=== PATIENT | male | born 1955 | race Caucasian/White ===

== ENCOUNTER 2020-11-03 15:07 | Outpatient (CLI) | payer MEDICARE, SELFPAY ==
--- NOTE | 2020-11-03 15:14 | MR_ITS ---
WS: [id number] MRI LUMBAR SPINE NONCONTRAST HISTORY: LOW BACK PAIN COMPARISON: None available. TECHNIQUE: Sagittal and axial multisequence imaging is submitted. Straightening of the normal cervical lordosis and thoracic kyphosis. Disc and osteophyte at C5-6 encr oaches upon the ventral thecal sac with mild deformity of the cervical cord. T6 hemangioma. 5 nonrib-bearing vertebral bodies. The S1 vertebral body is partially lumbarized. Prior interbody fix ation and posterior fusion at L5-S1. T12: 30% compression fracture. No retropulsion of the vertebral body. Increased signal is intermediat e within the vertebral body and extending into the posterior elements slightly greater on the RIGHT. Mild straightening of the normal lumbar lordosis. Mild disc desiccation without significant loss of height within the lumbar spine. Conus terminates normally at L2. T11-12: Mild annular disc bulging and osteophytic ridging. Mild encroachment into the foramina and campos barticular recesses. No high-grade stenosis. Mild facet arthritis. L1-L2: Normal. L2-L3: Mild ligamentum flavum hypertrophy and facet arthritis. There is a very shallow central disc p rotrusion without displacement of the thecal sac. L3-L4: Mild annular disc bulging and osteophytic ridging. Ligamentum flavum hypertrophy and facet art hritis. Fluid in the facet joints, LEFT greater than RIGHT. No stenosis. L4-L5: Very slight annular disc bulging. Posterior laminectomy defects are noted. Deformity and narro wing of the thecal sac with nerve roots being clumped in the periphery. Facet joint arthritis encroac hes centrally abutting several of the nerve roots in the thecal sac. Mild to moderate narrowing of th e central canal with mild narrowing of the lateral recesses and subarticular recesses. L5-S1: Thecal sac becomes patulous with laminectomy defects posteriorly. No stenosis. MR/MR lumbar spine wo con* [id number] IMPRESSION: 1. Subacute 30% compression fracture at T12. No retropulsion of the vertebral body. Very mild narrowing of the foramina and subarticular recesses at T11-12. 2. Status post L5-S1 lumbar fusion with interbody spacer. S1 is lumbarized. 3. Mild to moderate narrowing of the central canal at L4-5 with mild narrowing of the lateral recesses and subarticular recesses. Predominantly due to facet disease. 4. Large laminectomy defects at the L4-S1 levels.
== END 2020-11-03 15:08 | disposition home or self-care (01) ==
LOC: RADSHAW 15:13
PROVIDERS: Family Provider Family Medicine; PCP Family Medicine; Visit Provider Family Medicine
DX: M54.5 Low back pain (principal); S22.089A Unspecified fracture of T11-T12 vertebra, initial encounter for closed fracture; M43.27 Fusion of spine, lumbosacral region; M96.1 Postlaminectomy syndrome, not elsewhere classified; X58.XXXA Exposure to other specified factors, initial encounter
CPT/HCPCS: 72148

== ENCOUNTER → 2022-08-16 16:06 | Outpatient (BNVA) | payer MEDICARE, SELFPAY | PROVIDERS: Family Provider Family Medicine; PCP Family Medicine; Referring Provider Family Medicine; Visit Provider Dermatology | DX: L82.1 Other seborrheic keratosis (principal); L57.8 Other skin changes due to chronic exposure to nonionizing radiation; L21.8 Other seborrheic dermatitis | CPT/HCPCS: 99203 ==

== ENCOUNTER 2022-12-27 16:49 | Outpatient (CLI) | payer MEDICARE, SELFPAY ==
--- NOTE | 2022-12-27 | XR_ITS ---
WS: [id number] Exam: XR foot LT min 3V* [id number] Date/Time of Exam: 12/27/2022 5:12 PM Reason For Exam: LEFT FOOT PAIN No fracture or dislocation. Joint structures are well-maintained. No soft tissue foreign bodies are s een. Large plantar heel spur. IMPRESSION: 1. No acute fracture or other significant finding.
== END 2022-12-27 16:50 | disposition home or self-care (01) ==
PROVIDERS: PCP Family Medicine; Visit Provider Family Medicine
DX: M79.672 Pain in left foot (principal)
CPT/HCPCS: 73630

== ENCOUNTER 2023-05-31 08:37 | Outpatient (CLI) | payer MEDICARE, SELFPAY ==
--- NOTE | 2023-05-31 | ECG_ITS ---
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 Interpretive Statements NAME OF STUDY: LEXISCAN SESTAMIBI STRESS TEST INDICATION: [Chest Pain; Shortness of Breath] Procedure: At the baseline, the blood pressure was 151/85 mmHg with a heart rate of 62 bpm. The electrocardiogram showed normal sinus rhythm, normal axis with normal ST and T's. The Lexiscan was infused over a period of 20 seconds. A total of 0.4 mg of Lexiscan was infused. The stress phase was continued for a total of 5 minutes. Heart rate was at the end of stress phase was 79 bpm and a blood pressure of 137/75 mmHg. The EKG at the peak infusion revealed normal sinus rhythm with no significant ST-T wave changes. Sestamibi was injected 20 seconds after the Lexiscan infusion. Blood pressure at the end of recovery phase was 146/74 mmHg with a heart rate of 77 bpm. Conclusion: 1. Normal EKG response to Lexiscan infusion 2. No Lexiscan induced chest pain or cardiac arrhythmia. 3. Normal blood pressure and heart rate response. 4. Sestamibi/sestamibi perfusion scan pending; see separate report. Electronically Signed On 06-04-2023 12:11:26 [employer] by Jerry Max M.D. [email or web address]
[2023-05-31 08:47] VITALS: BMI 33.0
--- NOTE | 2023-05-31 09:04 | NMCV_ITS ---
Tom Holman Age: 68 Gender: M : 1955 Exam Date: 05/31/2023 09:39 Ordering Phys: Mavis Mcwilliams MD Technologist: PERNELL George Exam Location: [facility] Indications: CHEST PAIN STRESS TEST Please [facility] IMAGE PROTOCOL Rest/Stress 1 Lexiscan Day Radiopharmaceutical Dose (mCi) Administration Site Administered by Rest: Tc-99m 10.6 IV PERNELL Chacon Sestamibi Stress:Tc-99m 32.9 IV PERNELL Chacon Sestamibi Rest: 31-May-2023 60 Discovery 630 Stress: 31-May-2023 30 Discovery 630 0.4mg Lexiscan. Images obtained in supine and prone position. SPECT RESULTS Technical Quality: Excellent Raw Data Analysis: Normal Image Corrections: No attenuation or motion correction applied Summed Stress Score: 0 Summed Rest Score: 0 Summed Difference Score: 0 PERFUSION FINDINGS SPECT images demonstrate homogeneous tracer distribution throughout the myocardium. FUNCTIONAL RESULTS (calculated via Gated SPECT) Stress Image LV EF (%): 70 Stress EDV (mL):88 TID: 0.89 Stress ESV (mL):26 FUNCTIONAL FINDINGS: There is normal left ventricular systolic function. IMPRESSIONS 1. Normal myocardial perfusion imaging with no evidence of ischemia 2. LV systolic function is normal Jerry Max MD (Electronically Signed) Final Date: 31 May 2023 17:51 S
[2023-05-31] MEDS: regadenoson 0.4 Mg/5 ml Syringe IVP (10:25)
[2023-05-31 10:56] VITALS: BP 146/84; PULSE 72
== END 2023-05-31 08:38 | disposition home or self-care (01) ==
LOC: CDL 08:38
PROVIDERS: PCP Family Medicine; Visit Provider Family Medicine
DX: R07.9 Chest pain, unspecified (principal); R06.02 Shortness of breath
CPT/HCPCS: 36415; 78452; 93017; 96374; A9500; J2785

== ENCOUNTER → 2023-07-03 14:09 | Outpatient (BNVA) | payer MEDICARE, SELFPAY | PROVIDERS: PCP Family Medicine; Referring Provider Family Medicine; Visit Provider Internal Medicine Cardiovascular Disease | DX: R07.89 Other chest pain (principal); E11.9 Type 2 diabetes mellitus without complications; E78.2 Mixed hyperlipidemia; I82.563 Chronic embolism and thrombosis of calf muscular vein, bilateral; I10 Essential (primary) hypertension; Z79.4 Long term (current) use of insulin; Z79.01 Long term (current) use of anticoagulants | CPT/HCPCS: 99204 ==

== ENCOUNTER 2023-07-10 06:59 | Outpatient (CLI) | payer MEDICARE, SELFPAY ==
--- NOTE | 2023-07-10 07:15 | USCV_ITS ---
Tom Holman Age: 68 Gender: M : 1955 Exam Date: 07/10/2023 07:19 Ordering Phys: Flaquito Bustamante MD ([email or web address]) Technologist: Exam [place] [facility] [place]: cp BP: 130 / 74 HR: 0 Rhythm: Sinus Technical Quality: Good MEASUREMENTS (Male / Female) Normal Values 2D ECHO LV Diastolic Diameter PLAX 4.3 cm 4.2 - 5.9 / 3.9 - 5.3 cm IVS Diastolic Thickness 1.5 cm 0.6 - 1.0 / 0.6 - 0.9 cm IVS Systolic Thickness 1.8 cm LVPW Diastolic Thickness 1.1 cm 0.6 - 1.0 / 0.6 - 0.9 cm LVPW Systolic Thickness 2.0 cm LVOT Diameter 2.0 cm LV Ejection Fraction 2D Teich 58.2 % LV Ejection Fraction MOD 2C 70.5 % LV Ejection Fraction 2C AL 72.5 % LA Diameter 3.2 cm Aorta at Sinotubular Diameter 2.9 cm IVC Diameter 2.1 cm M-MODE LA Ao Ratio MM 1.4 AV Cusp Separation MM 2.2 cm DOPPLER AV Peak Velocity 128.0 cm/s LVOT Peak Velocity 76.0 cm/s AV Area Cont Eq vti 2.3 cm squared AV Area Cont Eq pk 1.9 cm squared MV Area PHT 2.9 cm squared Mitral E to A Ratio 0.9 TR Peak Velocity 228.5 cm/s TR Peak Gradient 20.9 mmHg TR Mean Velocity 166.0 cm/s TR Mean Gradient 12.5 mmHg TR Velocity Time Integral 73.1 cm TV Peak E Velocity 66.0 cm/s FINDINGS Left Ventricle Normal left ventricular size and systolic function, EF 58%. Mild concentric left ventricular hypertrophy.Grade I/IV diastolic dysfunction (abnormal relaxation filling pattern), normal to mildly elevated filling pressures. Right Ventricle The right ventricle is normal in size and function. Right Atrium The right atrium is normal in size. Left Atrium Mildly increased left atrial size. Mitral Valve Trace mitral valve regurgitation. Aortic Valve No gross abnormalities noted Tricuspid Valve Trace tricuspid valve regurgitation. Pulmonic Valve Pulmonic valve not well visualized. Pericardium Normal pericardium without effusion. Aorta Normal ascending aorta dimension. IVC Normal inferior vena cava. CONCLUSIONS Normal left ventricular size and systolic function, EF 58%. Mild concentric left ventricular hypertrophy.Grade I/IV diastolic dysfunction (abnormal relaxation filling pattern), normal to mildly elevated filling pressures. Mildly increased left atrial size. Trace mitral valve regurgitation. Trace tricuspid valve regurgitation. There is no pericardial effusion. There are no intracardiac masses. No similar previous studies are available for comparison Dr Flaquito Bustamante MD [facility] (Electronically Signed) Final Date: 14 July 2023 19:53 S
== END 2023-07-10 07:00 | disposition home or self-care (01) ==
LOC: RAD 06:59
PROVIDERS: PCP Family Medicine; Visit Provider Internal Medicine Cardiovascular Disease
DX: I51.7 Cardiomegaly (principal); I51.89 Other ill-defined heart diseases
CPT/HCPCS: 93306

== ENCOUNTER → 2023-10-02 08:46 | Outpatient (BNVA) | payer MEDICARE, SELFPAY | PROVIDERS: PCP Family Medicine; Visit Provider Nurse Practitioner Family | DX: I10 Essential (primary) hypertension (principal); Z87.898 Personal history of other specified conditions | CPT/HCPCS: 99213 ==

== ENCOUNTER → 2024-04-03 15:05 | Outpatient (BNVA) | payer MEDICARE, SELFPAY | PROVIDERS: PCP Family Medicine; Visit Provider Internal Medicine Cardiovascular Disease | DX: I10 Essential (primary) hypertension (principal); R94.39 Abnormal result of other cardiovascular function study; E78.2 Mixed hyperlipidemia; Z86.718 Personal history of other venous thrombosis and embolism; Z79.01 Long term (current) use of anticoagulants; E11.42 Type 2 diabetes mellitus with diabetic polyneuropathy; Z79.4 Long term (current) use of insulin | CPT/HCPCS: 99214 ==

== ENCOUNTER 2024-07-18 10:57 | Outpatient (CLI) | payer MEDICARE, SELFPAY ==
--- NOTE | 2024-07-18 11:06 | XR_ITS ---
WS: [id number] views of the left fourth finger, 07/18/2024 Clinical Data: INJURY OF LEFT RING FINGER Comparison: None. Findings: No fractures or dislocations are seen. The soft tissues are normal. The joint spaces are not remarkable. The patient's ring obscures minimal detail over the proximal phalanx. XR/XR finger LT min 2V [id number] Impression: Negative left fourth finger.
--- NOTE | 2024-07-18 11:39 | XR_ITS ---
WS: [id number] Pelvis, AP view, 07/18/2024 Clinical Data: FALL ON FROM LADDER Comparison: None. Findings: No fractures or dislocations are seen. The SI joints and pubic symphysis are intact. The soft tissues are not remarkable. The hips are intact. There is a posterior lumbar fusion. XR/XR pelvis 1-2V* [id number] Impression: Negative for fracture.
== END 2024-07-18 10:58 | disposition home or self-care (01) ==
PROVIDERS: PCP Family Medicine; Visit Provider Family Medicine
DX: S69.92XA Unspecified injury of left wrist, hand and finger(s), initial encounter (principal); G62.9 Polyneuropathy, unspecified; W11.XXXA Fall on and from ladder, initial encounter
CPT/HCPCS: 72170; 73140

== ENCOUNTER → 2024-07-25 10:26 | Outpatient (BNVA) | payer MEDICARE, SELFPAY | PROVIDERS: PCP Family Medicine; Referring Provider Family Medicine; Visit Provider Orthopaedic Surgery | DX: S69.92XA Unspecified injury of left wrist, hand and finger(s), initial encounter (principal); W11.XXXA Fall on and from ladder, initial encounter | CPT/HCPCS: 99204 ==

== ENCOUNTER → 2024-08-01 09:43 | Outpatient (BNVA) | payer MEDICARE, SELFPAY | PROVIDERS: PCP Family Medicine; Visit Provider Orthopaedic Surgery | DX: M79.645 Pain in left finger(s) (principal); S69.92XA Unspecified injury of left wrist, hand and finger(s), initial encounter; W11.XXXA Fall on and from ladder, initial encounter | CPT/HCPCS: 99213 ==

== ENCOUNTER → 2024-08-15 11:36 | Outpatient (BNVA) | payer MEDICARE, SELFPAY | PROVIDERS: PCP Family Medicine; Visit Provider Orthopaedic Surgery | DX: M79.645 Pain in left finger(s) (principal) | CPT/HCPCS: 99213 ==

== ENCOUNTER → 2024-10-02 09:53 | Outpatient (BNVA) | payer MEDICARE, SELFPAY | PROVIDERS: PCP Family Medicine; Visit Provider Nurse Practitioner Family | DX: I10 Essential (primary) hypertension (principal); E78.2 Mixed hyperlipidemia; I82.563 Chronic embolism and thrombosis of calf muscular vein, bilateral; Z79.01 Long term (current) use of anticoagulants; E11.9 Type 2 diabetes mellitus without complications; Z79.4 Long term (current) use of insulin; Z79.84 Long term (current) use of oral hypoglycemic drugs; Z79.85 Long-term (current) use of injectable non-insulin antidiabetic drugs | CPT/HCPCS: 99214 ==

== ENCOUNTER → 2025-02-25 09:54 | Outpatient (BNVA) | payer MEDICARE, SELFPAY | PROVIDERS: PCP Family Medicine; Visit Provider Family Medicine | DX: D68.51 Activated protein C resistance (principal) | CPT/HCPCS: 85610 ==

== ENCOUNTER → 2025-03-24 09:02 | Outpatient (BNVA) | payer MEDICARE, SELFPAY | PROVIDERS: PCP Family Medicine; Visit Provider Family Medicine | DX: Z11.59 Encounter for screening for other viral diseases (principal); E11.65 Type 2 diabetes mellitus with hyperglycemia; Z79.4 Long term (current) use of insulin; E78.019 Familial hypercholesterolemia, unspecified; I10 Essential (primary) hypertension; K21.9 Gastro-esophageal reflux disease without esophagitis; G62.9 Polyneuropathy, unspecified | CPT/HCPCS: 80053; 80061; 82043; 83036; 84439; 84443; 85025; 86803 ==

== ENCOUNTER → 2025-03-25 09:49 | Outpatient (BNVA) | payer MEDICARE, SELFPAY | PROVIDERS: PCP Family Medicine; Visit Provider Family Medicine | DX: E11.65 Type 2 diabetes mellitus with hyperglycemia (principal); Z79.4 Long term (current) use of insulin; E78.019 Familial hypercholesterolemia, unspecified; I10 Essential (primary) hypertension; K21.9 Gastro-esophageal reflux disease without esophagitis; G62.9 Polyneuropathy, unspecified | CPT/HCPCS: 82043 ==